=== PATIENT | male | born 1950 | race Caucasian/White ===

== ENCOUNTER 2019-02-21 06:16 | Day surgery (SDC) | payer BC ==
[~2019-02-21] VITALS: Ht 172.7 cm; Wt 80.9 kg
[~2019-02-21 06:16] MED LIST: Aspirin EC81 MG; Lisinopril2.5 MG; METF500C; Omeprazole20 M1; Pravachol40 MG
[2019-02-21] MEDS ORDERED: SITA50T2 (07:20)
--- NOTE | 2019-02-21 07:31 | NUR ---
02/21/19 0731 Cornell Arroyo FIRST 2 IV ATTEMPTS IN [facility] UNSUCCESSFUL, ORSC.BDK 3RD ATTEMPT IN [facility] SUCCESSFUL, ORSC.AMH
== END 2019-02-21 08:10 | disposition home or self-care (01) ==
LOC: ORSCSDS 06:16
PROVIDERS: Ophthalmology
PROC: 08RJ3JZ Replacement of Right Lens with Synthetic Substitute, Percutaneous Approach (ICD-10-PCS; principal; 2019-02-21 07:30)
DX: H25.11 Age-related nuclear cataract, right eye (principal); E11.36 Type 2 diabetes mellitus with diabetic cataract; E78.00 Pure hypercholesterolemia, unspecified; Z87.891 Personal history of nicotine dependence; Z79.82 Long term (current) use of aspirin; Z79.84 Long term (current) use of oral hypoglycemic drugs; Z79.899 Other long term (current) drug therapy
CPT/HCPCS: 82947; J2250; J3010; J7120; V2632

== ENCOUNTER → 2021-07-16 | Outpatient (CLI) | payer OTHER ==
[~2021-07-16] MED LIST changes: +SITA50T2
== END | disposition home or self-care (01) ==
LOC: LAB SHORT 08:15
DX: D23.39 Other benign neoplasm of skin of other parts of face (principal)
CPT/HCPCS: 88305

== ENCOUNTER 2022-11-11 07:38 | Day surgery (SDC) | payer OTHER ==
[~2022-11-11] VITALS: Ht 172.7 cm; Wt 82.2 kg
[2022-11-11] MEDS ORDERED: LOSA25 (07:58)
[2022-11-11] MEDS ORDERED: PRAV20 (07:59)
[2022-11-11] MEDS ORDERED: TRULICITY0.75 MG/01 (07:59)
[2022-11-11] MEDS ORDERED: PIOG15 (07:59)
[2022-11-11] MEDS ORDERED: OMEP20ER (07:59)
== END 2022-11-11 09:59 | disposition home or self-care (01) ==
LOC: ORSCSDS 07:38
PROVIDERS: Internal Medicine Gastroenterology
PROC: 0DBK8ZX Excision of Ascending Colon, Via Natural or Artificial Opening Endoscopic, Diagnostic (ICD-10-PCS; principal; 2022-11-11 09:00)
DX: Z12.11 Encounter for screening for malignant neoplasm of colon (principal); K57.30 Diverticulosis of large intestine without perforation or abscess without bleeding; D12.2 Benign neoplasm of ascending colon; E11.9 Type 2 diabetes mellitus without complications; Z87.891 Personal history of nicotine dependence; Z79.899 Other long term (current) drug therapy
CPT/HCPCS: 82947; 88305; J2704; J7120

== ENCOUNTER 2024-10-17 13:57 | Emergency (ER) | payer OTHER ==
[~2024-10-17] VITALS: Ht 172.7 cm; Wt 83.9 kg
[~2024-10-17 13:57] MED LIST changes: +LOSA25; +OMEP20ER; +PIOG15; +PRAV20; +TRULICITY0.75 MG/01
[2024-10-17 14:05] VITALS: BP 194/90
[2024-10-17] MEDS ORDERED: CEPH500 PO (16:46)
[2024-10-17] MEDS ORDERED: Tetanus,Diphtheria Toxd Ped/Pf 0.5 ML VIAL IM ONE (16:50)
[2024-10-17] MEDS ORDERED: Diphth,Pertuss(Acell),Tet Vac 0.5 ML VIAL IM ONE (17:00)
== END 2024-10-17 17:05 | disposition home or self-care (01) ==
LOC: ER 13:57
DX: S01.311A Laceration without foreign body of right ear, initial encounter (principal); W01.0XXA Fall on same level from slipping, tripping and stumbling without subsequent striking against object, initial encounter; Z23 Encounter for immunization; Z87.891 Personal history of nicotine dependence; Z79.899 Other long term (current) drug therapy; Z88.8 Allergy status to other drugs, medicaments and biological substances
CPT/HCPCS: 12013; 90471; 90702; 99282-25